=== PATIENT | female | born 1955 | race Two or more races ===

== ENCOUNTER 2016-08-08 23:33 | Inpatient (IN) | payer SELFPAY ==
[~2016-08-08] VITALS: Ht 170.2 cm; Wt 113.4 kg
--- NOTE | 2016-08-08 23:45 | NUR ---
PT BB RA; CHEST PAIN X 30 MIN MOBILITY ARCHITECT MANAGER, EMS ADMINT 162MG ASPRIN AND NITRO 0.4MG X 3. ON ARRIVAL PT STATES CP 5/10. PT AOX4 [id number] SPEAKING, SON AT BEDSIDE FOR TRANSLATION. RR EVEN AND UNLABORED. NO SOB NOTED. NAD NOTED. NO NVD AT THIS TIME. PT GOWNED AND PLACED ON MONITOR . DR. HOFF AT BEDSIDE FOR EVAL.
--- NOTE | 2016-08-08 23:47 | NUR ---
PT NOTED ANXIOUS
[2016-08-08] MEDS ORDERED: ASPIRIN 81 MG TAB.CHEW ONE (23:52)
[2016-08-08] MEDS ORDERED: LORAZEPAM INJ 2 MG/ML VIAL ONE (23:53)
--- NOTE | 2016-08-08 23:53 | NUR ---
IV STARTED ON LEFT AC 18. LABS AND BLOOD CX DRAWN .
[2016-08-09] MEDS ORDERED: LORAZEPAM INJ 2 MG/ML VIAL IV ONE
[2016-08-09] MEDS ORDERED: ASPIRIN 81 MG TAB.CHEW PO ONE
[2016-08-09 00:01] LABS: BASOPHILS # (AUTO) 0.1 /CMM (0.0-0.2); BASOPHILS % (AUTO) 0.5 % (0.0-2.0); EOSINOPHILS # (AUTO) 0.5 /CMM (0.0-0.7); EOSINOPHILS % (AUTO) 2.6 % (0.0-6.0); HEMATOCRIT 47 % (33-45); HEMOGLOBIN 15.6 g/dL (11.5-14.8); LYMPHOCYTES # (AUTO) 6.5 /CMM (0.8-4.8); MEAN CORPUSCULAR HEMOGLOBIN 29 PG (26.0-33.0); MEAN CORPUSCULAR HGB CONC 33 g/dl (31.0-36.0); MEAN CORPUSCULAR VOLUME 88 fL (82-100); MONOCYTES # (AUTO) 1.3 /CMM (0.1-1.30); MONOCYTES % (AUTO) 7.1 % (2.0-12.0); NEUTROPHILS # (AUTO) 10.1 /CMM (1.8-8.9); NEUTROPHILS % (AUTO) 54.8 % (43.0-81.0); PLATELET COUNT (AUTO) 333 /CMM (150-450); RDW COEFFICIENT OF VARIATION 12.8 (11.5-15.0); WHITE BLOOD COUNT (AUTO) 18.5 K/uL (4.3-11.0)
--- NOTE | 2016-08-09 00:04 | NUR ---
XRAY AT BEDSIDE
[2016-08-09 00:13] LABS: CALCIUM, SERUM 8.7 mg/dL (8.5-10.1); CARBON DIOXIDE 30 mmol/L (21-32); CHLORIDE 103 mmol/L (98-107); CREATININE 0.9 mg/dL (0.6-1.3); GFR 63 mL/min (>60); GLUCOSE 192 mg/dL (74-106); POTASSIUM 3.9 mmol/L (3.5-5.1); SODIUM SERUM 138 mmol/L (136-145); UREA NITROGEN, BLOOD 24 mg/dL (7-18)
[2016-08-09 00:19] LABS: D-DIMER 0.52 mg/L(FEU (0.17-0.50); INR 0.93 (0.87-1.13); PROTHROMBIN TIME 9.9 SECS (9.5-12.7)
[2016-08-09 00:21] LABS: TROPONIN I < 0.017 ng/mL (0.00-0.056)
[2016-08-09 00:22] LABS: LACTIC ACID 0.8 mmol/L (0.4-2.0)
[2016-08-09 00:26] LABS: B-TYPE NATRIURETIC PEPTIDE 13 PG/ML (0-125)
--- NOTE | 2016-08-09 01:07 | NUR ---
URINE COLLECTED. CALLED LAB FOR OUTBOARD TECHNICIAN.
[2016-08-09] MEDS ORDERED: IOHEXOL-350 100 ML VIAL IV ONE (01:08)
[2016-08-09] MEDS ORDERED: IV NS 0.9% 250 ML IV ONE (01:08)
--- NOTE | 2016-08-09 01:17 | NUR ---
PT TO RADIOLOGY FOR CTA
--- NOTE | 2016-08-09 01:34 | NUR ---
PT RETURNED FROM CT.
[2016-08-09 01:35] LABS: APPEARANCE,URINE CLEAR (CLEAR); BILIRUBIN,URINE NEGATIVE (NEGATIVE); BLOOD, URINE 2+ Ery/uL (NEGATIVE); COLOR,URINE YELLOW (YELLOW); KETONES,URINE NEGATIVE (NEGATIVE); LEUKOCYTE ESTERASE ,URINE NEGATIVE (NEGATIVE); NITRITE, URINE NEGATIVE (NEGATIVE); PROTEIN,URINE 2+ mg/dl (NEGATIVE); UGLUCOSE NEGATIVE (NEGATIVE); UROBILINOGEN,URINE 0.2 EU/dL (0.2)
[2016-08-09 01:40] LABS: WBC,URINE 0-2 /HPF (0-3)
[2016-08-09 01:41] LABS: ADD URINE CULTURE NO; BACTERIA,URINE None seen /HPF (None Seen); SQUAMOUS EPITHELIAL CELL,UR Few /HPF (None Seen)
[2016-08-09] MEDS ORDERED: SITA100T PO (01:45)
--- NOTE | 2016-08-09 02:08 | NUR ---
PAGED DR GALLEGOS @ [phone].
--- NOTE | 2016-08-09 02:40 | NUR ---
REPORT GIVEN TO RN SHAYNA FOR CONTINUE OF CARE.
[2016-08-09 03:00] VITALS: BP 109/71
[2016-08-09] MEDS ORDERED: NITROGLYCERIN 0.4 MG/TAB BOTTLE SL PRN (03:00)
[2016-08-09] MEDS ORDERED: MAG HYDROX/AL HYDROX/SIMETH 30 ML UDC PO PRN (03:00)
[2016-08-09] MEDS ORDERED: HYDROCODONE/APAP 5/325MG 1 EACH TABLET PO PRN (03:00)
[2016-08-09] MEDS ORDERED: Z GUARD REMEDY 2 OZ OINT TP PRN (03:00)
[2016-08-09] MEDS ORDERED: METOPROLOL TARTRATE 25 MG TABLET PO SCH (03:00)
[2016-08-09] MEDS ORDERED: MAGNESIUM HYDROXIDE 30 ML UDC PO PRN (03:00)
[2016-08-09] MEDS ORDERED: ZOLPIDEM TARTRATE 5 MG TABLET PO PRN (03:00)
[2016-08-09] MEDS ORDERED: ACETAMINOPHEN 325 MG TABLET PO PRN (03:00)
[2016-08-09] MEDS ORDERED: MORPHINE SULFATE INJ 2 MG/ML DISP.SYRIN IV PRN ×2 (03:00→09:30)
[2016-08-09] MEDS ORDERED: ONDANSETRON HCL/PF 4 MG/2 ML VIAL IVP PRN (03:00)
--- NOTE | 2016-08-09 03:00 | NUR ---
PT TRASNFERED PER ACLS PROTOCOL TO TELE BED 314-2
--- NOTE | 2016-08-09 03:05 | NUR ---
RN NOTE PT ARRIVED ON UNIT. AAOX4, COMORAN SPEAKING. C/O OF NON RADIATING CHEST PAIN 07/05. DENIES SOB. BREATHING EVEN AND NON-LABORED. SKIN WARM TO TOUCH, NON-DIAPHORETIC. TELE SHOW SR IN 90'S. IV INTACT AND PATENT, NO FLUIDS. AMBULATORY WITH ASSIST. SKIN INTACT. FAMILY AT BEDSIDE. ORIENTATED TO UNIT AND CALL LIGHT, SAFETY AND COMFORT MEASURES RENDERED. WILL CONT TO MONITOR. BP 109/71,90. LOPRESSOR HELD.
[2016-08-09] MEDS ORDERED: NITROGLYCERIN 0.4 MG/TAB BOTTLE ONE (03:49)
[2016-08-09 04:00] VITALS: BP 103/61
[2016-08-09] MEDS ORDERED: MORPHINE SULFATE INJ 2 MG/ML DISP.SYRIN ONE (05:50)
--- NOTE | 2016-08-09 06:52 | NUR ---
RN NOTE PT RESTING COMFORTABLY IN BED. C/O CP 1-2/ IN CENTER OF CHEST THAT DOES NOT RADIATE, MORPHINE PRN PROVIDED WAS EFFECTIVE. DENIES SOB. ON NC 2L. NON-DIAPHORETIC. TELE SHOWS SR 90'S. IV INTACT AND PATENT S/L. CALL LIGHT IN REACH, TO SEE WELDING MACHINE OPERATOR HELPER GAS TODAY. WILL F/U WITH DAY SHIFT FOR PAMELA.
[2016-08-09 07:00] VITALS: BP 84/47
--- NOTE | 2016-08-09 07:26 | NUR ---
tele hearing health technician: cardio consult seen and examined by dr. johnson with macanese staff translating with orders. pt for stress test this morning and held breakfast due to test. pt verbalized understanding and consent signed. instructed to call for assistance. will monitor.
--- NOTE | 2016-08-09 07:32 | NUR ---
tele ticket clerk: notes tele removed as ordered.
[2016-08-09 08:00] VITALS: BP 115/57
[2016-08-09] MEDS ORDERED: REGADENOSON 0.4 MG/5 ML DISP.SYRIN IVP ONE (09:00)
[2016-08-09] MEDS ORDERED: SITAGLIPTIN PHOSPHATE 50 MG TABLET PO SCH (09:00)
[2016-08-09] MEDS ORDERED: IPRATROPIUM NEB FS 0.5 MG/2.5 ML AMPUL.NEB NEB PRN (09:30)
[2016-08-09] MEDS ORDERED: ALBUTEROL FS 2.5 MG/0.5 ML VIAL.NEB NEB PRN (09:30)
--- NOTE | 2016-08-09 10:33 | NUR ---
m/s cosmetic chemist: notes pt for stress test at this time accompanied by transporter via w/c with family.
--- NOTE | 2016-08-09 11:40 | NUR ---
M/S MEDICARE COORDINATOR: NOTES PT BACK FROM STRESS TEST, LUNCH SERVED WITH HOB ELEVATED. FAMILY AT BEDSIDE. INSTRUCTED TO CALL FOR ASSISTANCE. WILL MONITOR.
[2016-08-09] MEDS: METOPROLOL TARTRATE 25 MG TABLET PO SCH ×2 (12:00→21:00)
[2016-08-09] MEDS: PANTOPRAZOLE 40 MG TABLET.DR PO SCH (12:26)
[2016-08-09] MEDS: LEVOFLOXACIN (500MG) 500 MG TABLET PO SCH (12:26)
[2016-08-09] MEDS: LINAGLIPTIN 5 MG TABLET PO SCH (12:26)
[2016-08-09] MEDS: ASPIRIN EC 81 MG TABLET.DR PO SCH (12:26)
--- NOTE | 2016-08-09 12:40 | NUR ---
m/s driver trainer: notes down for phase two via w/c at this time.
--- NOTE | 2016-08-09 13:40 | NUR ---
m/s senior financial accountant: notes pt completed stress test and back to her room, instructed to call for assistance. will monitor.
[2016-08-09 16:00] VITALS: BP 112/66
--- NOTE | 2016-08-09 16:00 | NUR ---
m/s psychology intern: notes stress test resulted which is normal. pt and family made aware. instructed to call for assistance. will continue to monitor.
--- NOTE | 2016-08-09 17:50 | NUR ---
m/s ironworker helper shop: notes dr. johnson called per cn and pt okay to go home today. dr. tariq notified, left message thru exchange. cn made aware. pt made aware. family at bedside and aware.
--- NOTE | 2016-08-09 18:45 | NUR ---
m/s marble polisher: notes pt ambulating in hallway accompanied by nephew. no distress noted. needs attended. will continue to monitor.
--- NOTE | 2016-08-09 19:00 | NUR ---
RN NOTE RECEIVED REPORT. PT AAOX4, C/O CENTER CHEST PAIN 04/06 THAT IS NON-RADIATING. DENIES SOB. NON-DIAPHORETIC. IV INTACT AND PATENT. FAMILY AT BEDSIDE. CALL LIGHT IN REACH. WILL CONT TO MONITOR.
[2016-08-09 20:00] VITALS: BP 114/66
[2016-08-09] MEDS ORDERED: SIMVASTATIN 20 MG TABLET PO SCH (22:00)
--- NOTE | 2016-08-10 06:33 | NUR ---
RN NOTE PT SLEPT WELL LAST NIGHT. NO SIGNIFICANT CHANGES T/O SHIFT. RESTING IN BED WITH EYES CLOSED, NO S/S OF ANY DISTRESS AT THIS TIME. BREATHING EVEN AND NON-LABORED. IV INTACT AND PATENT. CALL LIGHT IN REACH, WILL FOLLOW UP WITH DAY SHIFT FOR PAMELA.
[2016-08-10 07:19] LABS: BASOPHILS # (AUTO) 0.1 /CMM (0.0-0.2); BASOPHILS % (AUTO) 0.5 % (0.0-2.0); EOSINOPHILS # (AUTO) 0.2 /CMM (0.0-0.7); EOSINOPHILS % (AUTO) 1.2 % (0.0-6.0); HEMATOCRIT 45 % (33-45); HEMOGLOBIN 14.8 g/dL (11.5-14.8); LYMPHOCYTES % (AUTO) 26.1 % (20.0-44.0); MEAN CORPUSCULAR HEMOGLOBIN 29 PG (26.0-33.0); MEAN CORPUSCULAR HGB CONC 33 g/dl (31.0-36.0); MEAN CORPUSCULAR VOLUME 88 fL (82-100); MONOCYTES # (AUTO) 1.4 /CMM (0.1-1.30); MONOCYTES % (AUTO) 8.8 % (2.0-12.0); NEUTROPHILS # (AUTO) 9.8 /CMM (1.8-8.9); NEUTROPHILS % (AUTO) 63.4 % (43.0-81.0); PLATELET COUNT (AUTO) 254 /CMM (150-450); RDW COEFFICIENT OF VARIATION 12.9 (11.5-15.0); WHITE BLOOD COUNT (AUTO) 15.5 K/uL (4.3-11.0)
[2016-08-10 07:30] LABS: CALCIUM, SERUM 8.4 mg/dL (8.5-10.1); CREATININE 0.8 mg/dL (0.6-1.3); PHOSPHORUS 3.4 mg/dL (2.5-4.9); POTASSIUM 4.1 mmol/L (3.5-5.1)
[2016-08-10 07:47] LABS: THYROID STIMULATING HORMONE 1.491 uIU/mL (0.358-3.74)
[2016-08-10 08:00] VITALS: BP 95/60
--- NOTE | 2016-08-10 08:00 | NUR ---
m/s gravel weigher: initial assessment received pt in bed awake, a/ox4; georgian speaking only. no c/o chest pain, sob, or any discomfort. pt is on room air. no apparent distress noted. instructed to call for assistance. will continue to monitor.
[2016-08-10] MEDS: ASPIRIN EC 81 MG TABLET.DR PO SCH (08:25)
[2016-08-10] MEDS: PANTOPRAZOLE 40 MG TABLET.DR PO SCH (08:26)
[2016-08-10] MEDS: LINAGLIPTIN 5 MG TABLET PO SCH (08:26)
[2016-08-10] MEDS: METOPROLOL TARTRATE 25 MG TABLET PO SCH (08:28)
[2016-08-10] MEDS ORDERED: LOSARTAN POTASSIUM 50 MG TABLET PO SCH (09:00)
[2016-08-10] MEDS: LEVOFLOXACIN (500MG) 500 MG TABLET PO SCH (09:52)
[2016-08-10 09:53] VITALS: BP 111/72
--- NOTE | 2016-08-10 10:00 | NUR ---
m/s multifocal button generator: notes nephew here and will wait for md to discharge pt. pt for d'c planning home today. awaiting order. pt cleared by maintenance engineer. instructed to call for assistance. will monitor.
--- NOTE | 2016-08-10 11:15 | NUR ---
m/s marketing senior recruiter: md visit seen and examined by tracy (acnp) at this time. discharge instructions given to nephew, sister, and pt by md including med teaching. nephew translated instructions to pt and verbalized understanding.
--- NOTE | 2016-08-10 11:35 | NUR ---
m/s jack of all trades: d'c instructions discharged instructions given to pt with prescriptions and verbalized understanding. also given d'c instructions to nephew and he translated instructions to pt including med teachings. h/l removed with tip intact with no swelling, no redness, and no bleeding noted.
--- NOTE | 2016-08-10 12:08 | NUR ---
m/s adolescent specialist: discharged discharged home accompanied by nephew and sister in stable condition with all d'c papers and belongings. tracy bhatia (acnp) repeated med teachings to nephew prior to leaving the hospital and verbalized understanding.
== END 2016-08-10 12:00 | disposition home or self-care (01) | DRG 206 ==
LOC: ER 23:35 → TELE 08-09 02:06 → MED 08-09 10:32
DX: M94.0 Chondrocostal junction syndrome [Tietze] (principal); I10 Essential (primary) hypertension; F17.200 Nicotine dependence, unspecified, uncomplicated; E66.01 Morbid (severe) obesity due to excess calories; F17.210 Nicotine dependence, cigarettes, uncomplicated; J20.9 Acute bronchitis, unspecified; D72.829 Elevated white blood cell count, unspecified; Z68.39 Body mass index [BMI] 39.0-39.9, adult; E11.65 Type 2 diabetes mellitus with hyperglycemia
CPT/HCPCS: 36415; 71010-TC; 80048-TC; 80061-TC; 81000-TC; 83605-TC; 83735-TC; 83880; 84100-TC; 84443-TC; 84484-TC; 85025-TC; 85378-TC; 85730-TC; 87040-TC; 87081-TC; 93307-TC; A4606; A9502; J2060; J2270; J2785; J7050; Q9967; Z7610

== ENCOUNTER 2022-07-22 11:52 | Inpatient (IN) | payer MEDICARE, OTHER ==
[2022-07-22] VITALS (13 sets, daily range): BP systolic 121–169; BP diastolic 64–82
[~2022-07-22] VITALS: Ht 167.6 cm; Wt 93.0 kg
[~2022-07-22 11:52] MED LIST: SITA100T PO
--- NOTE | 2022-07-22 12:05 | NUR ---
[id number] HOME FOR ALTERED MENTATION, FEVER AND BG READ OVER 500
[2022-07-22] MEDS ORDERED: PROPOFOL 100 ML ONE (12:16)
--- NOTE | 2022-07-22 12:20 | NUR ---
PT. INTUBATED BY DR. JARA FOR AIRWAY PROTECTION. INTUBATED WITH 7.5 ETT AND SECURED @ 22 CM LIPLINE. CO2 DETECTOR CHANGED TO YELLOW COLOR POST INTUBATION. BREATH SOUNDS COARSE RHONCHI WITH SYMMETRICAL CHEST RISE AFTER INTUBATION. VENT SETTINGS BELOW PER DR. JARA: AC 20 VT 500 ML FIO2 100% PEEP +5 VENT PLUGGED INTO RED OUTLET WITH ALARMS ON AND FUNCTIONING. BVM @ BEDSIDE. Addendum: 07/22/22 at 1244 by MEGA GONGORA RT Amended: Links added.
--- NOTE | 2022-07-22 12:22 | NUR ---
VENT SETTINGS: MODE: A/C VC FIO2: 100 TIDAL VOLUME: 500 RATE: 20 I:E: 1:2 PEEP: 5 PMAX: 50
[2022-07-22 12:29] LABS: BASOPHILS % (AUTO) 0.1 % (0.0-2.0); HEMATOCRIT 44 % (33-45); LYMPHOCYTES # (AUTO) 0.4 K/uL (0.8-4.8); LYMPHOCYTES % (AUTO) 1.6 % (20.0-44.0); MEAN CORPUSCULAR HGB CONC 32 g/dl (31.0-36.0); MEAN CORPUSCULAR VOLUME 82 fL (82-100); MONOCYTES # (AUTO) 0.6 K/uL (0.1-1.30); MONOCYTES % (AUTO) 2.9 % (2.0-12.0); NEUTROPHILS # (AUTO) 21.2 K/uL (1.8-8.9); NEUTROPHILS % (AUTO) 95.4 % (43.0-81.0); PLATELET COUNT (AUTO) 248 K/uL (150-450); RED BLOOD CELL COUNT(AUTO) 5.38 MIL/uL (4.0-5.2); WHITE BLOOD COUNT (AUTO) 22.2 K/uL (4.3-11.0)
[2022-07-22] MEDS ORDERED: IV NS 0.9% 1,000 ML BAG IV ONE ×2 (12:30)
[2022-07-22] MEDS ORDERED: PROPOFOL 100 ML IV ONE (12:30)
[2022-07-22] MEDS ORDERED: PROPOFOL 200 MG/20 ML VIAL IV ONE ×2 (12:30→20:34)
[2022-07-22] MEDS ORDERED: ONDANSETRON HCL/PF 4 MG/2 ML VIAL IVP ONE (12:30)
--- NOTE | 2022-07-22 12:31 | NUR ---
PRE VITALS HEART RATE:167; O2: 93% ON NR 15L; BLOOD PRESSURE: 154/137 100MG DIPROVAN GIVEN AT 1219; INTUBATION COMPLETED AT 1220 7.5 22 AT THE LIP POST VITALS: HEART RATE: 139; BLOOD PRESSURE; 107/76; SATTING AT 99% ON MECH VENT
--- NOTE | 2022-07-22 12:46 | NUR ---
URINE / COVID / BLOOD SAMPLE OBTAINED SENT TO LAB
[2022-07-22 12:49] LABS: ALANINE AMINOTRANSFERASE 30 U/L (12-78); ALBUMIN 2.5 g/dL (3.4-5.0); ALKALINE PHOSPHATASE 107 U/L (46-116); ASPARTATE AMINOTRANSFERASE 13 U/L (15-37); BILIRUBIN,DIRECT 0.3 mg/dL (0.0-0.2); BILIRUBIN,TOTAL 0.9 mg/dL (0.2-1.0); CALCIUM, SERUM 8.6 mg/dL (8.5-10.1); CARBON DIOXIDE 20 mmol/L (21-32); CHLORIDE 90 mmol/L (98-107); CREATININE 1.2 mg/dL (0.6-1.3); POTASSIUM 4.7 mmol/L (3.5-5.1); SODIUM SERUM 127 mmol/L (136-145); TOTAL PROTEIN, SERUM 7.8 g/dL (6.4-8.2); UREA NITROGEN, BLOOD 25 mg/dL (7-18)
[2022-07-22] MEDS ORDERED: ACETAMINOPHEN 650 MG/SUPP.RECT RC ONE ×2 (13:00→13:15)
[2022-07-22] MEDS ORDERED: PIPERACILLIN /TAZOBACTAM 3.375 G in IV D5W 50 ML IV ONE (13:00)
--- NOTE | 2022-07-22 13:00 | NUR ---
ET TUBE ADJUSTED I CM PUSHED IN PER DR. JARA. ET TUBE ADJUSTED FROM 22 CM TO 23 CM LIPLINE Addendum: 07/22/22 at 1301 by MEGA GONGORA RT Amended: Links added.
[2022-07-22] MEDS ORDERED: PIPERACILLIN /TAZOBACTAM 3.375 G VIAL IV ONE (13:15)
[2022-07-22] MEDS ORDERED: ONDANSETRON HCL/PF 4 MG/2 ML VIAL ONE (13:15)
--- NOTE | 2022-07-22 13:16 | NUR ---
BED GIVEN 254
[2022-07-22 13:31] LABS: BILIRUBIN,URINE 1+ (NEGATIVE); COLOR,URINE YELLOW (YELLOW); LEUKOCYTE ESTERASE ,URINE TRACE (NEGATIVE); NITRITE, URINE NEGATIVE (NEGATIVE); PROTEIN,URINE 3+ mg/dl (NEGATIVE); UGLUCOSE 3+ mg/dL (NEGATIVE); UROBILINOGEN,URINE 0.2 EU/dL (0.2)
[2022-07-22 13:35] LABS: BACTERIA,URINE Many /HPF (None Seen); RBC,URINE 51-80 /HPF (0-2); SQUAMOUS EPITHELIAL CELL,UR Few /HPF (None Seen); WBC,URINE 0-2 /HPF (0-3)
--- NOTE | 2022-07-22 13:42 | NUR ---
PT'S ONCOLOGIST DR. PRINCE CHOI [phone]
[2022-07-22 13:52] LABS: ACETAMINOPHEN < 10 ug/ml (10-30); ALCOHOL, BLOOD < 3 mg/dL (0-0); SERUM AMMONIA 60 umol/L (11-32)
[2022-07-22 13:54] LABS: MAGNESIUM 1.8 mg/dL (1.8-2.4); PHOSPHORUS 3.7 mg/dL (2.5-4.9)
[2022-07-22 13:56] LABS: GLUCOSE 582 mg/dL (74-106)
[2022-07-22 14:16] LABS: PHOSPHORUS 2.4 mg/dL (2.5-4.9)
[2022-07-22 14:27] LABS: ABG PCO2 26.3 mmHg (35.0-45.0); ABG PH 7.441 (7.350-7.450); ABG PO2 455.8 mmHg (75.0-100.0); COHb 0.3 % (0.5-1.5); MetHb 0.3 % (0.0-1.5); O2Hb 98.3 % (94.0-97.0); PEEP,BG 5 cm H2O; SITE, ABG Right Brachial; VT, ABG 500 mL
[2022-07-22 14:29] LABS: MAGNESIUM 1.2 mg/dL (1.8-2.4)
[2022-07-22] MEDS ORDERED: ENOXAPARIN SODIUM 40 MG/0.4 ML DISP.SYRIN SQ SCH (14:30)
[2022-07-22] MEDS ORDERED: ONDANSETRON HCL/PF 4 MG/2 ML VIAL IVP PRN (14:30)
[2022-07-22] MEDS ORDERED: IV NS 0.9% 1,000 ML IV PRN (14:30)
[2022-07-22] MEDS ORDERED: INSULIN REGULAR, HUMAN 100 UNIT in IV NS 0.9% 99 ML IV PRN ×2 (14:30)
[2022-07-22 14:39] LABS: THYROID STIMULATING HORMONE 0.775 uIU/mL (0.358-3.74)
--- NOTE | 2022-07-22 14:50 | NUR ---
REPORT GIVEN TO VALDO TAM
--- NOTE | 2022-07-22 14:54 | NUR ---
VENT CHANGES BELOW PER DR. JARA: AC 14 VT 450 ML FIO2 40% PEEP +5 RN NOTIFIED ON NEW VENT SETTINGS MADE. Addendum: 07/22/22 at 1455 by MEGA GONGORA RT Amended: Links added.
[2022-07-22] MEDS ORDERED: DONE5TAB7 PO (15:32)
[2022-07-22] MEDS ORDERED: METO25TA4 PO (15:32)
[2022-07-22] MEDS ORDERED: GLIP10TA11 PO (15:32)
[2022-07-22] MEDS ORDERED: EMPA10TA PO (15:32)
[2022-07-22] MEDS ORDERED: DOCU100C58 PO (15:32)
[2022-07-22] MEDS ORDERED: PIOG45TA5 PO (15:32)
[2022-07-22] MEDS ORDERED: DEXA1TAB PO (15:32)
[2022-07-22] MEDS ORDERED: CITA10TA9 PO (15:32)
[2022-07-22] MEDS ORDERED: INSU100I26 SQ (15:32)
[2022-07-22] MEDS ORDERED: OLAN10TA3 PO (15:32)
[2022-07-22] MEDS ORDERED: METF-442 PO (15:32)
[2022-07-22] MEDS ORDERED: ASPI-1420 PO (15:32)
[2022-07-22] MEDS ORDERED: ONDA8TAB65 PO (15:32)
[2022-07-22] MEDS ORDERED: FAMO20TA29 PO (15:32)
[2022-07-22] MEDS ORDERED: ATOR10TA PO (15:32)
[2022-07-22] MEDS ORDERED: BENA20TA9 PO (15:32)
--- NOTE | 2022-07-22 15:32 | NUR ---
MOVED TO INPATIENT ROOM SAFELY PER ACLS PROTOCOL .
--- NOTE | 2022-07-22 15:35 | NUR ---
pt transferred from er #8 to icu 254. pt use same mechanical vent with same vent settings. vent plugged into red outlet with ambubag @ bedside. Addendum: 07/22/22 at 1536 by MEGA GONGORA RT Amended: Links added.
[2022-07-22] MEDS ORDERED: CHEMOTHERAPY IV (15:37)
[2022-07-22] MEDS: PROPOFOL 100 ML IV PRN ×3 (15:46→17:21)
[2022-07-22] MEDS: PANTOPRAZOLE 40 MG VIAL IV SCH (15:49)
[2022-07-22] MEDS ORDERED: VANCOMYCIN 1 GM in IV D5W 250 ML IV ONE (16:00)
[2022-07-22] MEDS ORDERED: Sodium Phosphate 15 MMOL in IV NS 0.9% 245 ML IV ONE (16:00)
--- NOTE | 2022-07-22 16:00 | NUR ---
SQL DATABASE DEVELOPER NOTE Patient was admitted to ICU for respiratory failure. Transported to the unit with monitor technician, escort of ANEL Watt and RT Norbert. library monitor showed ST HR 123/min,MAP>65mmHg. Patient was intubated, size 7.5 marking at lip at 23cm. SpO2>95% with FiO2 0.4, sedated by propofol at 30mcg/kg/min. Right upper limb ML is dry and intact, with propofol. Circulation with restraints use is good. Bed is locked and placed in the lowest position. Will continue monitoring and care. Addendum: 07/22/22 at 1944 by ZULMA VERDE RN GCS [id number], bilateral pupils 3mm PEARLA.
[2022-07-22 16:41] LABS: MAGNESIUM 1.9 mg/dL (1.8-2.4); PHOSPHORUS 3.8 mg/dL (2.5-4.9)
[2022-07-22] MEDS: Magnesium 1GM/D5W 100ML PREMIX 100 ML IV SCH ×4 (17:30→20:58)
--- NOTE | 2022-07-22 17:35 | NUR ---
SODA FOUNTAIN OPERATOR NOTE - DKA management Blood sugar 432, inquired PYROMETER OPERATOR Marleen about the specific DKA protocol that we are following. She said to follow the following formula: BS x 1.5 / 100. Faxed the protocol to pharmacy.
--- NOTE | 2022-07-22 17:41 | NUR ---
POLYGRAPH EXAMINER NOTE Patient has a port cath for her chemotherapy. TRANSPORT TRUCK DRIVER Marleen said it's okay to use the port. The extension line was inserted with aseptic technique, +ve blood draw and flushed well. Patient's Mg was low 1.2, for 4g of replacement.
[2022-07-22] MEDS: DEXAMETHASONE SOD PHOSPHATE 4 MG/ML VIAL IV SCH (17:56)
[2022-07-22] MEDS: BLOOD SUGAR DIAGNOSTIC 1 EACH STRIP IN SCH ×5 (18:59→23:07)
--- NOTE | 2022-07-22 19:10 | NUR ---
ICU/RN: SPOKE WITH YADIRA MOREIRA DNP. UPDATE WAS GIVEN ON PT. NEW ORDERS FOR Q2H NEURO CHECK AND TITRATE DOWN SEDATION TOLERATED.
[2022-07-22] MEDS: ZOSYN IVPB 3.375 G in IV D5W 50ml IV SCH (19:28)
[2022-07-22] MEDS: Z GUARD REMEDY 4 OZ OINT TP SCH (21:12)
[2022-07-22] MEDS ORDERED: MEROPENEM 500 MG VIAL IV ONE (21:25)
[2022-07-22 21:31] LABS: CALCIUM, SERUM 7.5 mg/dL (8.5-10.1); CREATININE 0.9 mg/dL (0.6-1.3); POTASSIUM 2.9 mmol/L (3.5-5.1)
--- NOTE | 2022-07-22 21:49 | NUR ---
ICU/RN: LATEST BMP RESULT RELAYED TO MODE MAHAN ACNP. NEW ORDERS RECIEVED AND CARRIED OUT.
[2022-07-22] MEDS: POTASSIUM CL. PREMIX PERIPHER. 50 ML IV SCH ×2 (22:15→23:03)
[2022-07-22] MEDS ORDERED: IV PREMIX 0.45% NS + KCL 1,000 ML IV ONE (22:25)
--- NOTE | 2022-07-22 23:14 | NUR ---
ICU/RN: SPOKE WITH ORTIZ MOREIRA DNP REGARDING PT STATUS. PER ORTIZ PT NEEDS TRANSFER TO HIGHER LEVEL OF CARE AT [facility]. CLINICAL INFORMATION FAXED OVER. Addendum: 07/23/22 at 0122 by MAKI MATA RN CANCEL LUMBAR PUNCTURE PER ORTIZ.
[2022-07-22] MEDS: ACETAMINOPHEN 325 MG TABLET PO PRN (23:26)
[2022-07-23] VITALS (33 sets, daily range): BP systolic 122–167; BP diastolic 70–98
[2022-07-23] MEDS: POTASSIUM CL. PREMIX PERIPHER. 50 ML IV SCH ×2 (00:06→01:10)
[2022-07-23] MEDS: BLOOD SUGAR DIAGNOSTIC 1 EACH STRIP IN SCH ×6 (00:08→18:37)
[2022-07-23] MEDS: ZOSYN IVPB 3.375 G in IV D5W 50ml IV SCH ×3 (01:09→13:01)
[2022-07-23 01:18] LABS: CALCIUM, SERUM 7.7 mg/dL (8.5-10.1); CREATININE 0.9 mg/dL (0.6-1.3); POTASSIUM 3.3 mmol/L (3.5-5.1)
[2022-07-23] MEDS ORDERED: DEXTROSE 50%-WATER 50 ML DISP.SYRIN IV PRN (02:30)
[2022-07-23] MEDS: PROPOFOL 100 ML IV PRN ×3 (02:45→13:56)
[2022-07-23] MEDS: IV D5/0.45 NACL 1,000 ML IV PRN ×2 (02:46→10:38)
[2022-07-23 04:51] LABS: BASOPHILS % (AUTO) 0.1 % (0.0-2.0); HEMATOCRIT 37 % (33-45); LYMPHOCYTES # (AUTO) 0.6 K/uL (0.8-4.8); LYMPHOCYTES % (AUTO) 3.9 % (20.0-44.0); MEAN CORPUSCULAR HGB CONC 32 g/dl (31.0-36.0); MEAN CORPUSCULAR VOLUME 81 fL (82-100); MONOCYTES # (AUTO) 0.4 K/uL (0.1-1.30); MONOCYTES % (AUTO) 2.8 % (2.0-12.0); NEUTROPHILS # (AUTO) 13.9 K/uL (1.8-8.9); NEUTROPHILS % (AUTO) 93.2 % (43.0-81.0); PLATELET COUNT (AUTO) 186 K/uL (150-450); RED BLOOD CELL COUNT(AUTO) 4.58 MIL/uL (4.0-5.2); WHITE BLOOD COUNT (AUTO) 14.9 K/uL (4.3-11.0)
[2022-07-23 05:04] LABS: CALCIUM, SERUM 8.1 mg/dL (8.5-10.1); CREATININE 0.7 mg/dL (0.6-1.3); MAGNESIUM 2.7 mg/dL (1.8-2.4); PHOSPHORUS 3.2 mg/dL (2.5-4.9); POTASSIUM 3.7 mmol/L (3.5-5.1)
[2022-07-23] MEDS: INSULIN REGULAR, HUMAN 100 UNIT/ML 3 ML VIAL SQ PRN ×3 (06:15→18:39)
[2022-07-23] MEDS ORDERED: HEPARIN SODIUM, PORCINE 5000 UNITS/1 ML VIAL ONE (06:19)
[2022-07-23] MEDS ORDERED: HEPARIN INFUSION/D5W 0 ML IV ONE (06:20)
--- NOTE | 2022-07-23 06:55 | NUR ---
Please note: HEPARIN VIALS AND BAG TAKEN OUT BY ACCIDENT.NO ORDERS FOR HEPARIN BOLUS AND DRIP FOR THIS PATIENT.
--- NOTE | 2022-07-23 07:27 | NUR ---
WOUND CARE CONSULT: PT UNSTABLE TO BE TURNED PER RN. DUSKY COLOR NOTED TO HEELS AND FEET, PRESENT ON ADMISSION. ADMISSION PHOTOS INDICATE SACRAL DEEP TISSUE INJURY WITH SCARRING WELL EXCORIATED AREAS TO BACK. RECOMMENDATIONS MADE FOR SKIN PROTECTION. DISCUSSED WITH NURSING STAFF. MD IN AGREEMENT WITH PLAN OF CARE.
--- NOTE | 2022-07-23 07:30 | NUR ---
OPENING NOTE: REPORT RECEIVED FROM DEE TAM. ORDERS AND LABS REVIEWED DURING REPORT. PER MD ORDERS PT IS TO REMAIN FLAT, NO INVASIVE PROCEDURES OR NG TUBES. PT CURRENTLY HAS AN OG TUBE. PT IS LIGHTLY SEDATED ON 20 MCG/KG/MIN OF DIPRIVAN, PT RESPONDS APPROPRIATELY TO SIMPLE COMMANDS. PER REPORT INSULIN GTT WAS TURNED OFF AT 0200 THIS AM. PER REPORT PT'S RIGHT PUPIL IS SLIGHTLY SMALLER THAN LEFT PUPIL, CONFIRMED WITH CHECK DURING REPORT. PER REPORT PT HAS ORDERS TO GO TO HIGHER LEVEL OF CARE TO [facility], NO WORK YET ON WHEN OR BED ASSIGNMENT. PT CHECKED ON HOURLY AND PRN BY NURSING STAFF.
[2022-07-23 08:03] LABS: ABG BASE EXCESS -2.5 mmol/L; ABG OXYGEN SATURATION 97.7 % (92.0-98.5); ABG PCO2 33.5 mmHg (35.0-45.0); ABG PH 7.419 (7.350-7.450); ABG PO2 116.2 mmHg (75.0-100.0); AaDO2 130.5 mmHg; COHb 0.8 % (0.5-1.5); MetHb 0.2 % (0.0-1.5); O2Hb 96.7 % (94.0-97.0); VENT MODE, BG AC 14 450 40 +5
--- NOTE | 2022-07-23 08:09 | NUR ---
PER DR BUCHANAN PROPOFOL TO BE TURNED OFF FOR SEDATION VACATION. BEFORE SEDATION TURNED OFF PT WAS ALREADY AWAKE, FOLLOWING SIMPLE COMMANDS WITH THE HELP OF EMELINA LONG SPEAKING TO PT IN [place].
--- NOTE | 2022-07-23 08:20 | NUR ---
DR BUCHANAN ASSESSED PATIENT AND ORDERED FOR DIPRIVAN TO RESUME AT PREVIOUS RATE OF 20 MCG/KG/MIN FOR HELP PT STAY RELAXED WITH THE HOPES PATIENT CAN GET TRANSFERRED TO HIGHER LEVEL OF CARE SOON POSSIBLE. PROPOFOL RESUMED AT THIS TIME.
[2022-07-23] MEDS: DEXAMETHASONE SOD PHOSPHATE 4 MG/ML VIAL IV SCH ×2 (08:53→16:32)
[2022-07-23] MEDS: PANTOPRAZOLE 40 MG VIAL IV SCH (08:53)
[2022-07-23] MEDS: Z GUARD REMEDY 4 OZ OINT TP SCH (08:54)
[2022-07-23] MEDS ORDERED: POTASSIUM CL. PREMIX PERIPHER. 50 ML IV SCH (10:00)
--- NOTE | 2022-07-23 13:30 | NUR ---
PER CASE MANAGEMENT AND DR LOPEZ PT IS GOING TO GET TRANSFERRED TO [facility] SOMETIME TODAY. CHART IS BEING COPIED, RADIOLOGY DISK ORDERED. FAMILY AWARE.
[2022-07-23] MEDS ORDERED: VANCOMYCIN 1.25 GM in IV D5W 250 ML IV SCH (16:00)
[2022-07-23] MEDS ORDERED: VANCOMYCIN 1.5 GM in IV D5W 500ml IV SCH (16:00)
[2022-07-23] MEDS: ACETAMINOPHEN 325 MG TABLET PO PRN (16:32)
--- NOTE | 2022-07-23 18:30 | NUR ---
TELEPHONE REPORT GIVEN TO MICAH AT [facility]. AMBULANCE DUE TO COMPUTER TECHNICAL SPECIALIST PATIENT AT 1830, NOT HERE OF THIS TIME. TEMP AT 1600 WAS 101.4, FOLLOW UP TEMP WAS 98.4. FAMILY AT BEDSIDE, SUPPORTIVE OF TRANSFER TO [facility].
--- NOTE | 2022-07-23 19:34 | NUR ---
ICU/RN: PT OFF THE FLOOR WITH CRITICAL CARE TRANSPORT FOR TRANSFER TO [facility] FOR HIGHER LEVEL OF CARE. ALL REPORTS GIVEN BY DIANA TAM.
== END 2022-07-23 19:42 | disposition short-term general hospital (02) | DRG 871 ==
LOC: ER 11:54 → ICU 13:52
PROVIDERS: ADMIT Nurse Practitioner Acute Care; ATTEND Internal Medicine
PROC: 5A1945Z Respiratory Ventilation, 24-96 Consecutive Hours (ICD-10-PCS; principal; 2022-07-22)
PROC: 05HB33Z Insertion of Infusion Device into Right Basilic Vein, Percutaneous Approach (ICD-10-PCS; 2022-07-22)
DX: A41.9 Sepsis, unspecified organism (principal); E11.10 Type 2 diabetes mellitus with ketoacidosis without coma; G03.9 Meningitis, unspecified; J96.01 Acute respiratory failure with hypoxia; R53.2 Functional quadriplegia; D68.59 Other primary thrombophilia; E44.0 Moderate protein-calorie malnutrition; E87.1 Hypo-osmolality and hyponatremia; N17.9 Acute kidney failure, unspecified; N39.0 Urinary tract infection, site not specified; C71.9 Malignant neoplasm of brain, unspecified; G96.00 Cerebrospinal fluid leak, unspecified; G93.40 Encephalopathy, unspecified; Z20.822 Contact with and (suspected) exposure to COVID-19; I10 Essential (primary) hypertension; E86.1 Hypovolemia; B96.89 Other specified bacterial agents as the cause of diseases classified elsewhere; E88.09 Other disorders of plasma-protein metabolism, not elsewhere classified; F17.200 Nicotine dependence, unspecified, uncomplicated; G93.89 Other specified disorders of brain; Z82.49 Family history of ischemic heart disease and other diseases of the circulatory system; Z83.3 Family history of diabetes mellitus
CPT/HCPCS: 31720; 36415; 36600; 70450-TC; 71045-TC; 80048-TC; 80061-TC; 80076-TC; 81001; 82140-TC; 82803-TC; 82962-TC; 83605-TC; 83735-TC; 84100-TC; 84443-TC; 84484-TC; 85025-TC; 85730-TC; 86850-TC; 87040-TC; 87081-TC; 87086-TC; 94002-TC; 94003-TC; 94799-TC; A4223; A9563; C9113; C9803; G0378; G0480; J1100; J1644; J1650; J1815; J2185; J2405; J2543; J2704; J3370; J3475; J3480; J3490; J7030; J7050; J7060